=== PATIENT | female | born 1965 | race Caucasian/White ===

== ENCOUNTER 2019-03-10 07:40 | Outpatient (CLI) | payer OTHER ==
[~2019-03-10] VITALS: Ht 152.4 cm; Wt 82.6 kg
[~2019-03-10 07:40] MED LIST: LIPO-FLAVONOID1 EACH PO
[2019-03-10] MEDS ORDERED: AYR SALINE NA14.1 GM NASAL (09:46)
[2019-03-10] MEDS ORDERED: AFRIN15 ML NASAL (09:46)
== END 2019-03-10 07:55 | disposition home or self-care (01) ==
LOC: OFIC 805 07:40
DX: J31.0 Chronic rhinitis (principal); R04.0 Epistaxis; R42 Dizziness and giddiness